=== PATIENT | male | born 1990 | race African-American/Black ===

== ENCOUNTER → 2020-12-30 | Outpatient (CLI) | payer OTHER ==
--- NOTE | 2020-12-31 09:33 | RAD ---
US HEAD/NECK SOFT TISSUE History:Reason: SUBCUTANEOUS NODULE POSTERIOR NECK / Spl. Instructions: / History: Comparison: None Technique: Sonographic examination of the posterior neck subcutaneous tissues Findings: Bilobed solid mass within the posterior neck subcutaneous tissues with irregular borders measures 1.1 x 2.4 x 1.1 cm. There is internal Doppler flow. Impression: 1. Bilobed solid mass within the posterior neck subcutaneous tissues, indeterminate. [facility]. Electronically signed by: Juan A Shah DO (12/31/2020 9:31 AM) [id number]
== END ==
LOC: US 15:38
PROVIDERS: ATTEND Family Medicine
DX: R22.1 Localized swelling, mass and lump, neck (principal)
CPT/HCPCS: 76536